=== PATIENT | female | born 1970 | race Caucasian/White ===

== ENCOUNTER → 2019-12-02 | Outpatient (CLI) | payer OTHER ==
[~2019-12-02] MED LIST: TRAM50TA2 PO
== END ==
LOC: M LABSMTC 07:58
PROVIDERS: ATTEND Anesthesiology
DX: Z01.818 Encounter for other preprocedural examination (principal); Z11.59 Encounter for screening for other viral diseases

== ENCOUNTER 2019-12-05 06:14 | Observation (INO) | payer OTHER ==
[~2019-12-05] VITALS: Ht 160 cm; Wt 59.9 kg
[2019-12-05] VITALS (8 sets, daily range): BP systolic 102–113; BP diastolic 59–68
[2019-12-05] MEDS ORDERED: LR 1,000 ML IV ONE (06:15)
[2019-12-05] MEDS ORDERED: ceFAZolin SOD 1 GM in D5W MINI-BAG PLUS 50 ML IV ONE (06:15)
[2019-12-05] MEDS ORDERED: EPINEPHrine 1MG/ML INJ 30ML MD-VIAL As Ordered ONE (07:05)
[2019-12-05] MEDS ORDERED: LIDOCAINE 1% MDV 20ML VIAL As Ordered ONE (07:05)
[2019-12-05] MEDS ORDERED: BACITRACIN PWD 50,000 UNITS VIAL As Ordered ONE (07:06)
[2019-12-05] MEDS ORDERED: BUPIVACAINE LIPOSOME/PF 1.3% 20ML VIAL (13.3MG/ML)(EXPAREL)(C9290 PER1MG) As Ordered ONE (07:06)
[2019-12-05] MEDS ORDERED: SCOPOLAMINE 1MG TRANSDERMAL PATCH TOP ONE (07:15)
[2019-12-05] MEDS ORDERED: fentaNYL 250 MCG/5 ML INJECTION (J3010) As Ordered ONE (08:15)
[2019-12-05] MEDS ORDERED: ROCURONIUM BROMIDE 50 MG/5 ML VIAL As Ordered ONE ×2 (08:15→08:16)
[2019-12-05] MEDS ORDERED: ONDANSETRON 4MG/2ML VIAL As Ordered ONE (08:15)
[2019-12-05] MEDS ORDERED: MIDAZOLAM INJ 2MG/2ML VIAL (J2250 PER 1MG) As Ordered ONE (08:15)
[2019-12-05] MEDS ORDERED: LIDOCAINE 2% 100MG/5ML SDV (FOR ANES.) As Ordered ONE (08:15)
[2019-12-05] MEDS ORDERED: dexameTHASONE 4 MG/ML 1ML VIAL (J1100 PER 1MG) As Ordered ONE (08:15)
[2019-12-05] MEDS ORDERED: propofoL 200 MG/20 ML VIAL As Ordered ONE (08:15)
[2019-12-05] MEDS ORDERED: ACETAMINOPHEN 1000MG 100ML IV BTL (OFIRMEV) (J0131 PER 10MG) As Ordered ONE (08:15)
[2019-12-05] MEDS ORDERED: METOCLOPRAMIDE INJ 10MG/2ML VIAL (J2765 PER 1) As Ordered ONE (08:15)
[2019-12-05] MEDS ORDERED: SUGAMMADEX SODIUM 500 MG/5 ML VIAL (BRIDION) As Ordered ONE (08:15)
[2019-12-05] MEDS ORDERED: DESFLURANE 240 ML INHALANT As Ordered ONE (09:55)
--- NOTE | 2019-12-05 11:12 | POST-OPPD ---
Postoperative Procedure Note Date Of Procedure: December 05, 2019 PREOPERATIVE DIAGNOSIS: Symptomatic macromastia POSTOPERATIVE DIAGNOSIS: same FINDINGS: Large breasts PROCEDURE: Bilateral breast reduction SURGEON: Dr Owen ANESTHESIA: General SPECIMENS: Right breast 248gm, Left breast 263gm ESTIMATED BLOOD LOSS: 75cc REPLACED: none DRAINS: 10 mm CATHY x 2 COMPLICATIONS: none POSTOPERATIVE CONDITION: stable [id number] KATHERINE OWEN DO December 05, 2019 11:12
[2019-12-05] MEDS ORDERED: HYDROMORPHONE HCL 0.5 MG/ 0.5 ML SYRINGE (J1170 PER 1) IV PRN (11:15)
[2019-12-05] MEDS ORDERED: oxyCODONE 5MG TAB PO PRN (11:15)
[2019-12-05] MEDS ORDERED: LR 1,000 ML IV SCH (11:15)
[2019-12-05] MEDS ORDERED: ONDANSETRON 4MG/2ML VIAL IV PRN ×2 (11:15→11:30)
[2019-12-05] MEDS ORDERED: fentaNYL 100 MCG/2 ML INJECTION (J3010) IV PRN (11:15)
[2019-12-05] MEDS ORDERED: METOCLOPRAMIDE INJ 10MG/2ML VIAL (J2765 PER 1) IV PRN (11:15)
[2019-12-05] MEDS ORDERED: traMADol 50 MG TAB PO PRN (11:30)
[2019-12-05] MEDS: LR 1,000 ML IV SCH (11:57)
[2019-12-05] MEDS: ACETAMINOPHEN TAB 650MG DOSE (2X325MG) PO PRN ×2 (13:04→21:02)
[2019-12-05] MEDS: ceFAZolin SOD 1 GM in D5W MINI-BAG PLUS 50 ML IV SCH ×2 (16:29→23:24)
[2019-12-06] MEDS: LR 1,000 ML IV SCH (00:38)
[2019-12-06 02:00] VITALS: BP 101/58
[2019-12-06 06:00] VITALS: BP 102/66
--- NOTE | 2019-12-06 08:30 | IPNPDOC ---
Subjective General Date Seen: December 06, 2019 Subject Chief Complaint/History The patient is a 49-year-old female admitted with a reason for visit of Hypertrophy Of Breast. S/p BBR POD 1. Doing well. Pain controlled. Tolerating diet, ambulating. No complains. Current Medications Current Medications Current Medications Medications (Trade) Dose Ordered Sig/Zara Route PRN Reason Start Time Stop Time Status Last Admin Dose Admin Acetaminophen (Tylenol Tab) 650 mg Q6H PRN PO MILD PAIN (PS 1-4) 12/05/19 11:30 12/05/19 21:02 Cefazolin Sodium 1 gm/Dextrose 50 ml @ 100 mls/hr Q8H IV 12/05/19 16:00 12/06/19 00:29 DC 12/05/19 23:24 Fentanyl Citrate (Sublimaze) 25 mcg Q5MP PRN IV PAIN LEVEL 5-10 12/05/19 11:15 12/05/19 12:15 DC Hydromorphone HCl (Dilaudid) 0.4 mg Q5MP PRN IV PAIN LEVEL 4-7 12/05/19 11:15 12/05/19 12:15 DC Lactated Ringer's 1,000 ml @ 75 mls/hr [id number] IV 12/05/19 11:18 12/05/19 11:57 Lactated Ringer's 1,000 ml @ 100 mls/hr Q10H IV 12/05/19 11:15 12/05/19 12:15 DC Metoclopramide HCl (REGLAN INJection) 10 mg Q6HP PRN IV NAUSEA OR VOMITING 12/05/19 11:15 12/05/19 12:15 DC Ondansetron HCl (ZOFRAN INJection) 4 mg Q4H PRN IV NAUSEA OR VOMITING 12/05/19 11:30 Ondansetron HCl (ZOFRAN INJection) 4 mg Q4HP PRN IV NAUSEA OR VOMITING 12/05/19 11:15 12/05/19 12:15 DC Oxycodone HCl (Roxicodone, Oxyir) 5 mg ASDIRECTED PRN PO PAIN LEVEL 1-4 12/05/19 11:15 12/05/19 12:15 DC Tramadol HCl (Ultram) 50 mg Q6HP PRN PO MODERATE PAIN (PS 5-7) 12/05/19 11:30 Allergies Coded Allergies: No Known Allergies (Unverified , 11/30/19) Objective Physical Examination Examination GENERAL APPEARANCE:Patient seen, laying in bed, awake, alert, and oriented. Comfortable, in no acute distress. SKIN: Warm and moist. BREAST: Right and left soft, non-tender incisions intact. CATHY drains: L24/R21 cc/24 hr. NAC: Viable, warm, symmetrical, mild post-op ecchymosis, no expanding hematoma. HEENT: Normocephalic, atraumatic. Mccall palpebral conjunctiva, anicteric sclerae. Lips and mucosa appear moist. NECK: Supple, no thyromegaly. No obvious jugular venous distention. LUNGS: Clear to auscultation bilaterally. No wheezing appreciated. HEART: No chest wall abnormalities. Regular rate and rhythm with no murmurs appreciated. ABDOMEN: Abdomen is soft, non-tender, non-distended. EXTREMITIES: No edema identified. No calf tenderness. Vital Signs Vital Signs Date Time Temp Pulse Resp B/P (MAP) Pulse Ox O2 Delivery O2 Flow Rate FiO2 12/06/19 06:00 98.7 59 14 102/66 (78) 99 Room Air I&Os I&O- Last 24 Hours up to 6 AM 12/06/19 06:00 Intake Total 2215 ml Output Total 140 ml Balance 2075 ml Impression Symptomatic macromastia. S/p BBR. Doing well. Stable for discharge Monitor CATHY drains, record output. No wetting the dressing. Keep bra on. F/ up plastic surgery 12/13/19 10:15am Plan / VTE VTE Prophylaxis Ordered?: Yes VTE Exclusion Mechanical Proph: Low Risk for VTE KATHERINE OWEN DO December 06, 2019 08:30
[2019-12-06] MEDS ORDERED: TRAM50TA2 PO (08:32)
[2019-12-06] MEDS: ACETAMINOPHEN TAB 650MG DOSE (2X325MG) PO PRN (10:09)
--- NOTE | 2019-12-07 18:53 | RO ---
DATE OF PROCEDURE: 12/05/2019 PREPROCEDURE DIAGNOSIS: Symptomatic macromastia. POSTPROCEDURE DIAGNOSIS: Symptomatic macromastia. PROCEDURE: Bilateral breast reduction. SURGEON: Alivia Perez DO ANESTHESIA: General. SPECIMEN: Right breast 248 grams, left breast 263 grams. BLOOD LOSS: 75 mL. DRAINS: Two 10 mm CATHY drains. No complications. POSTOP CONDITION: Stable. DESCRIPTION OF PROCEDURE: This is a 49-year-old female who is very small stature. She has large breasts that is causing her upper back pain, which is not relieved by medications and support bra. She is a good candidate for surgical breast reduction. All the risks and benefits and alternatives discussed with the patient in detail, and she is ready to proceed. On preop day, she was marked in holding area. Her measurements are from sternal notch to the left nipple is 30 cm, the right 29-1/2. The IMF line is at 20 cm; that is where the nipple areolar complex is going to be moved to. She was marked according to superior medial pedicle pattern. Then, she was brought into the operating room, placed in supine position. Preoperative antibiotics were given. Sequential stockings were placed on the lower calves and general anesthesia was induced. She was prepped and draped in the usual sterile fashion. Time-out was taken. Then, we started our procedure on the right side. Nipple areolar complex was outlined at 42 mm in diameter and an incision was carried out. Excision of breast tissue was done according to superior medial pedicle, so dissecting inferolateral portion of the breast. Hemostasis was achieved using electrocautery. Then, the pedicle was de-epithelialized using Olivas scissors and then the area was irrigated with bacitracin irrigation solution. 7 mL of Exparel was infiltrated in the pectoralis area and through the breast and then at this point, pedicle was reexamined and had good vascular supply and it was turned superiorly to its new location. The pillars were then closed with interrupted #3-0 Monocryl sutures. The vertical limb is 6 cm and then the breast mound was recreated and conformed using #0 Vicryl sutures. Excess tissue inferiorly was measured and resected creating the horizontal incision, which was then closed with interrupted #3-0 Monocryl sutures as well. Nipple areolar complex was sutured in place with interrupted #3-0 and #4-0 Monocryl sutures, as well as a dermal #5-0 plain. 10 mm Greyson-Kee drain placed through the lateral portion of horizontal incision and secured in place. The rest of the Exparel was given into the lateral chest area and around the drain, totaling 10 mL on that side. Then, we turned our attention to the left side, and a mirror procedure was re-created. Excision was done according to superior medial pedicle, inferolateral portion of the breast was resected. Nipple areolar complex was measured at 42 mm in diameter. Hemostasis was obtained using electrocautery. The pedicle was de-epithelialized using Olivas scissors and then area was irrigated with bacitracin irrigation solution. The pectoralis muscle was blocked with 7 mL of Exparel. Then, the pedicle was turned superiorly to its new location and pillars were closed with interrupted #3-0 Monocryl sutures and the mound was recreated and conformed using #0 Vicryl sutures as well. Excess tissue was measured and resected, creating horizontal inferior scar. Vertical scar is at 6 cm equaling to the right side. Nipple areolar complex was then closed with interrupted #3-0 and #4-0 Monocryl sutures and a #5-0 plain, 10 mm Greyson-Kee drain was placed through the lateral portion of the horizontal incision and also sutured in place with #3-0 Monocryl sutures. Prineo dressing was placed, as well as a bulky dressing and Xeroform on the nipple, and a support bra. Patient was extubated in the operating room without any difficulties, transferred to the recovery room in stable condition. ALEXANDRA
== END 2019-12-06 10:28 | disposition home or self-care (01) ==
LOC: M SDC 06:14 → M ED INP 06:15 → M MS5PR 11:58
PROVIDERS: ADMIT Plastic Surgery Surgery of the Hand; ATTEND Plastic Surgery Surgery of the Hand
DX: N62 Hypertrophy of breast (principal); M54.9 Dorsalgia, unspecified
CPT/HCPCS: 19318; 81025; 88305; 96365; 96366; C9290; J0131; J0690; J1100; J2250; J2405; J2765; J3010